=== PATIENT | female | born 1995 | race Caucasian/White ===

== ENCOUNTER 2019-02-21 22:26 | Emergency (ER) | payer SELFPAY ==
--- NOTE | 2019-02-21 22:40 | ED ---
Substance Abuse/Use - HPI Summary HPI Summary: This patient is a 23 year old F brought in by ambulance to [facility] intoxicated. Per EMS, patient took an Uber from a [facility] into [facility] and was vomiting when EMS was contacted. EMS states she was able to speak during transport. During evaluation patient is unable to communicate but is actively vomiting. HPI is limited. Patient is level 5 caveat due to alcohol intoxication. - History Of Current Complaint Stated Complaint: "ETOH PER EMS" Hx Obtained From: EMS Hx From Patient Unobtainable Due To: Other - etoh intoxication Onset/Duration of Drug/ETOH Abuse: Hours - binge use Overdose Characteristics: Oral Timing Of Abuse: Binge Use Associated Signs And Symptoms: Vomiting - Allergies/Home Medications Allergies/Adverse Reactions: Allergies Allergy/AdvReac Type Severity Reaction Status Date / Time Unable to Assess Allergy Verified 02/21/19 23:21 Home Medications: Home Medications Unobtainable 02/21/19 [History Confirmed 02/21/19] PMH/Surg Hx/FS Hx/Imm Hx Previously Healthy: No - PMHx is limited. Patient is level 5 caveat due to etoh intoxication - Family History Known Family History: Positive: Unknown - Unattainable. Patient is level 5 caveat due to intoxication. - Social History Alcohol Amount: binge use Review of Systems Positive: Other - etoh intoxication All Other Systems Reviewed And Are Negative: No - Comments Additional Review of Systems Comments: ROS is limited. Patient is level 5 caveat due to etoh intoxication. Physical Exam - Summary Physical Exam Summary: Appearance: Appears intoxicated, no signs of injury actively vomiting, able to protect own airway and sit up in bed, speaking to EMS Skin: Warm, dry, no obvious rash Eyes: sclera anicteric, no conjunctival pallor ENT: mucous membranes moist Neck: deferred Respiratory: No signs of respiratory distress Cardiovascular: Appears well perfused, pulses are nml Abdomen: deferred Musculoskeletal: Moving all 4 extremities without obvious discomfort Physical Exam is limited. Patient is level 5 caveat due to etoh intoxication. Triage Information Reviewed: Yes Vital Signs Reviewed: Yes Course/Dx - Course Course Of Treatment: 23 year old F brought in by ambulance intoxicated. During evaluation patient is unable to communicate but is actively vomiting, but can sit up and protect airway. While in ED patient slept throughout the night with no issues. Patient is able to walk to bathroom and requests to go home. Patient will be discharged home. - Diagnoses Provider Diagnoses: Alcohol intoxication Discharge - Sign-Out/Discharge Documenting (check all that apply): Patient Departure - discharged Patient Received Moderate/Deep Sedation with Procedure: No - Discharge Plan Condition: Improved Disposition: HOME Patient Education Materials: Alcohol Intoxication (ED) Referrals: No Primary Care Phys,NOPCP [Primary Care Provider] - Additional Instructions: Ending up in an ER because of alcohol intoxication is often a red flag that you may have a drinking problem. I would encourage you to reflect on your drinking, perhaps talk to friends about it, and maybe even attend an AA meeting. It is much easier to change a problem behavior when you are young than ignoring it until you get older and the behavior gets more entrenched. - Billing Disposition and Condition Condition: IMPROVED Disposition: Home - Attestation Statements Document Initiated by Kayla: Yes Documenting Scribe: Sofya Sosa Provider For Whom Kayla is Documenting (Include Credential): Pineda Alvarado MD Scribe Attestation: ISofya, scribed for Pineda Alvarado MD on 02/25/19 at 1837. Scribe Documentation Reviewed: Yes Provider Attestation: The documentation as recorded by the Sofya wu accurately reflects the service I personally performed and the decisions made by me, Pineda Alvarado MD Status of Scribe Document: Viewed
[2019-02-22 06:10] VITALS: BP 100/55
== END 2019-02-22 06:05 | disposition home or self-care (01) ==
LOC: ED 22:26
DX: F10.129 Alcohol abuse with intoxication, unspecified (principal)
CPT/HCPCS: 99283